=== PATIENT | female | born 1985 | race Two or more races ===

== ENCOUNTER 2020-09-02 10:12 | Day surgery (SDC) | payer OTHER ==
[2020-09-02 10:23] VITALS: BMI 22.8
[2020-09-02 12:57] LABS: BASO % 0.4 % (0-2.0); EOS % 1.2 % (0-4.5); HEMATOCRIT 37.6 % (32.4-45.2); HEMOGLOBIN 12.7 GM/dL (10.7-15.3); LYMPH % 22.6 % (8-40); MCH 31.5 pg (25.7-33.7); MCHC 33.7 g/dl (32.0-36.0); MEAN CELL VOLUME 93.6 fl (80-96); MEAN PLT VOLUME 10.4 fl (7.5-11.1); MONO % 8.2 % (3.8-10.2); NEUT % 67.6 % (42.8-82.8); PLATELET COUNT 189 K/MM3 (134-434); RBC 4.02 M/mm3 (3.60-5.2); RDW 13.2 % (11.6-15.6); WHITE BLOOD COUNT 8.6 K/mm3 (4.0-10.0)
[2020-09-02 13:08] LABS: POTASSIUM 3.6 mmol/L (3.5-5.1)
[2020-09-02 13:10] LABS: CALCIUM 8.4 mg/dL (8.5-10.1)
[2020-09-02 13:11] LABS: ALBUMIN 3.7 g/dl (3.4-5.0); BLOOD UREA NITROGEN 8.6 mg/dL (7-18)
[2020-09-02 13:14] LABS: CREATININE 0.7 mg/dL (0.55-1.3)
[2020-09-02 13:15] LABS: BILIRUBIN,TOTAL 0.6 mg/dL (0.2-1); TOT PROT 7.1 g/dl (6.4-8.2)
[2020-09-02] MEDS ORDERED: LACTATED RINGERS SOLUTION 1,000 ML/1,000 ML INFUS.BAG IV SCH (14:30)
[2020-09-02] MEDS ORDERED: EPHEDRINE SULFATE/0.9% NACL/PF 50 MG/10 ML SYRINGE NR ONE (14:41)
[2020-09-02] MEDS ORDERED: PROPOFOL 20 ML ONE (14:41)
[2020-09-02] MEDS ORDERED: fentaNYL CITRATE 250 MCG/5 ML VIAL ONE (14:41)
[2020-09-02] MEDS ORDERED: ROCURONIUM BROMIDE 50 MG/5 ML SYRINGE ONE (14:42)
[2020-09-02] MEDS ORDERED: MIDAZOLAM HCL 2 MG/2 ML SINGLE DOSE VIAL ONE (14:43)
[2020-09-02 14:58] LABS: INR 1.13 (0.83-1.09); PROTHROMBIN TIME (PATIENT) 13.6 SEC (9.7-13.0)
[2020-09-02] MEDS ORDERED: ceFAZolin 2 GRAM PREMIX BAG IVPB ONE (15:03)
[2020-09-02] MEDS ORDERED: BUPIVACAINE HCL/PF 0.25% (2.5MG/ML) 10 ML VIAL ONE (15:14)
[2020-09-02] MEDS ORDERED: NEOSTIGMINE METHYLSULFATE 0.5 MG/ML - 10 ML MDV ONE (15:27)
[2020-09-02 15:29] LABS: EPI CELLS >36 /uL (0-25.1); HYALINE CASTS 2 /uL (0-3.1); PH,URINE 6.5 (5.0-8.0); URINE APPEARANCE CLEAR; URINE BACTERIA 1332 /uL (0-1359); URINE BILIRUBIN NEGATIVE (NEGATIVE); URINE COLOR YELLOW; URINE GLUCOSE (UA) NEGATIVE (NEGATIVE); URINE KETONE NEGATIVE (NEGATIVE); URINE LEUK ESTERASE NEGATIVE (NEGATIVE); URINE NITRITE NEGATIVE (NEGATIVE); URINE PROTEIN NEGATIVE (NEGATIVE); URINE RBC 10 /uL (0-23.9); URINE WBC 44 /uL (0-25.8)
[2020-09-02] MEDS ORDERED: BUPIVACAINE HCL 0.25% 125 MG/50 ML VIAL NR ONE (15:35)
[2020-09-02] MEDS ORDERED: ACETAMINOPHEN 1000 MG/100 ML VIAL (NON FORMULARY) IVPB ONE ×2 (16:25→16:52)
[2020-09-02] MEDS ORDERED: IBUPROFEN 600 MG TABLET (FP) PO PRN (16:27)
[2020-09-02] MEDS ORDERED: oxyCODONE HCL 5 MG TABLET PO PRN (16:28)
[2020-09-02] MEDS ORDERED: ONDANSETRON 4 MG/2 ML VIAL ONE ×2 (17:02→18:16)
[2020-09-02] MEDS ORDERED: ONDANSETRON 4 MG/2 ML VIAL IVPUSH ONE ×3 (17:07→18:15)
[2020-09-02] MEDS ORDERED: KETOROLAC TROMETHAMINE 30 MG/1 ML VIAL ONE (17:30)
[2020-09-02] MEDS ORDERED: KETOROLAC TROMETHAMINE 30 MG/1 ML VIAL IVPUSH ONE ×2 (17:32→18:30)
[2020-09-02] MEDS ORDERED: oxyCODONE HCL 5 MG TABLET PO ONE ×2 (19:35)
[2020-09-02] MEDS ORDERED: oxyCODONE HCL 5 MG TABLET ONE (19:39)
[2020-09-02 19:58] VITALS: BP 119/57; PULSE 83; TEMP 97.7
[2020-09-02] MEDS ORDERED: ACETAMINOPHEN 500 MG TABLET (FP) PO PRN (20:52)
== END 2020-09-02 19:50 | disposition home or self-care (01) ==
LOC: JER 10:12 → UNDOADMIN 12:38 → JASUSAT 12:38 → JERBED 12:38 → JASUSAT 19:50
PROVIDERS: ATTEND Obstetrics & Gynecology
PROC: 0UT54ZZ Resection of Right Fallopian Tube, Percutaneous Endoscopic Approach (ICD-10-PCS; 2020-09-02)
PROC: 10T24ZZ Resection of Products of Conception, Ectopic, Percutaneous Endoscopic Approach (ICD-10-PCS; principal; 2020-09-02 14:30)
DX: O00.101 Right tubal pregnancy without intrauterine pregnancy (principal)
CPT/HCPCS: 36415; 76817-TC; 80053; 81003; 84702; 85025; 85610; 86850; 86900; 86901; 87086; 88305-TC; 94760; 99291; C9803; J0131; U0003

== ENCOUNTER 2020-12-16 15:06 | Emergency (ER) | payer OTHER ==
[2020-12-16 15:28] VITALS: BP 106/66; PULSE 62; BMI 22.8
[2020-12-16] MEDS ORDERED: ONDANSETRON *ODT* 4 MG TABLET SL ONE (16:28)
[2020-12-16] MEDS ORDERED: ACETAMINOPHEN 500 MG TABLET (FP) PO ONE (16:28)
[2020-12-16] MEDS ORDERED: ONDANSETRON *ODT* 4 MG TABLET ONE (17:31)
[2020-12-16] MEDS ORDERED: ACETAMINOPHEN 325 MG TABLET (FP) ONE (17:56)
[2020-12-16 18:03] LABS: URINE APPEARANCE CLEAR; URINE BILIRUBIN NEGATIVE (NEGATIVE); URINE COLOR YELLOW; URINE GLUCOSE (UA) NEGATIVE (NEGATIVE); URINE KETONE NEGATIVE (NEGATIVE); URINE LEUK ESTERASE NEGATIVE (NEGATIVE); URINE NITRITE NEGATIVE (NEGATIVE); URINE PROTEIN NEGATIVE (NEGATIVE)
[2020-12-16 18:39] LABS: HCG,QUALITATIVE URINE NEGATIVE
== END 2020-12-16 18:52 | disposition left against medical advice (07) ==
LOC: JER 15:06
DX: R10.2 Pelvic and perineal pain (principal)
CPT/HCPCS: 81003; 84703; 87086; 99284-25; Q0162

== ENCOUNTER 2021-02-18 11:40 | Emergency (ER) | payer OTHER ==
[2021-02-18 11:54] VITALS: BP 99/62; PULSE 88; BMI 22.8
[2021-02-18 11:55] VITALS: TEMP 98.2
[2021-02-18 12:55] LABS: EPI CELLS 5 /uL (0-25.1); HYALINE CASTS 1 /uL (0-3.1); PH,URINE 6.5 (5.0-8.0); URINE APPEARANCE CLOUDY; URINE BACTERIA 518 /uL (0-1359); URINE BILIRUBIN NEGATIVE (NEGATIVE); URINE COLOR YELLOW; URINE GLUCOSE (UA) NEGATIVE (NEGATIVE); URINE KETONE NEGATIVE (NEGATIVE); URINE LEUK ESTERASE 3+ (NEGATIVE); URINE NITRITE NEGATIVE (NEGATIVE); URINE PROTEIN 1+ (NEGATIVE); URINE RBC 3358 /uL (0-23.9); URINE WBC 2410 /uL (0-25.8)
[2021-02-18 13:03] LABS: HCG,QUALITATIVE URINE Negative
== END 2021-02-18 13:10 | disposition home or self-care (01) ==
LOC: JERFT 11:40
DX: N30.00 Acute cystitis without hematuria (principal)
CPT/HCPCS: 81003; 84703; 87086; 87186; 99283-25